=== PATIENT | female | born 1985 | race Caucasian/White ===

== ENCOUNTER 2016-08-15 11:21 | Emergency (ER) | payer OTHER ==
[2016-08-15 11:39] VITALS: BP 153/85; PULSE 88; RESP 16; TEMP 98.3
--- NOTE | 2016-08-15 12:00 | ED ---
General Adult HPI - General Chief complaint: Wound/Laceration Stated complaint: POST ABDOMINAL Sx PROBLEM Time Seen by Provider: 08/15/16 11:41 Source: patient, RN notes reviewed Mode of arrival: ambulatory Limitations: no limitations - History of Present Illness Initial comments: Patient 31-year-old female status post 11 days, who presents emergency room today with a chief complaint of some drainage coming from the incision site on the right. She states that she noticed small amount this morning. She states the Steri-Strips were wet. She states it is a clear color. She does admit some local pain and irritation. She denies any other complaints or symptoms. Patient denies any recent fever, chills, shortness of breath, chest pain, back pain, abdominal pain, nausea or vomiting, numbness or tingling, dysuria or hematuria, constipation or diarrhea, headaches or visual changes, or any other complaints. - Related Data Home Medications Medication Instructions Recorded Confirmed Pnv with Ca,No.72/Iron/FA 1 tab PO DAILY 03/01/16 08/04/16 [ Plus Tablet] Famotidine [Pepcid] 20 mg PO DAILY 07/28/16 08/04/16 Previous Rx's Medication Instructions Recorded Hydrocodone/Acetaminophen [[place] 1 - 2 tab PO Q6HR PRN #20 tab 08/06/16 5-325] Cephalexin [Keflex] 500 mg PO Q12HR 10 Days 08/15/16 Allergies Allergy/AdvReac Type Severity Reaction Status Date / Time hydromorphone [From Dilaudid] Allergy Itching Verified 08/15/16 11:38 citalopram hydrobromide AdvReac Rash/Hives Verified 08/15/16 11:38 [From Celexa] morphine AdvReac Itching Verified 08/15/16 11:38 Sulfa (Sulfonamide AdvReac Rash/Hives Verified 08/15/16 11:38 Antibiotics) Review of Systems ROS Statement: Those systems with pertinent positive or pertinent negative responses have been documented in the HPI. ROS Other: All systems not noted in ROS Statement are negative. Past Medical History Past Medical History: No Reported History History of Any Multi-Drug Resistant Organisms: None Reported Past Surgical History: Back Surgery, Section Past Anesthesia/Blood Transfusion Reactions: No Reported Reaction Past Psychological History: Depression Smoking Status: Never smoker Past Alcohol Use History: None Reported Past Drug Use History: None Reported - Past Family History Father Family Medical History: Cancer Additional Family Medical History / Comment(s): melanoma, pat. gpa-lymphoma General Exam - General Exam Comments Initial Comments: General: The patient is awake and alert, in no distress, and does not appear acutely ill. Eye: Pupils are equal, round and reactive to light, extra-ocular movements are intact. No nystagmus. There is normal conjunctiva bilaterally. No signs of icterus. Ears, nose, mouth and throat: There are moist mucous membranes and no oral lesions. Neck: The neck is supple, there is no tenderness or JVD. Cardiovascular: There is a regular rate and rhythm. No murmur, rub or gallop is appreciated. Respiratory: Lungs are clear to auscultation, respirations are non-labored, breath sounds are equal. No wheezes, stridor, rales, or rhonchi. Gastrointestinal: Soft, non-distended, non-tender abdomen without masses or organomegaly noted. There is no rebound or guarding present. No CVA tenderness. Bowel sounds are unremarkable. Musculoskeletal: Normal ROM, no tenderness. Strength 5/5. Sensation intact. Pulses equal bilaterally 2+. Neurological: A&O x 3. CN II-XII intact, There are no obvious motor or sensory deficits. Coordination appears grossly intact. Speech is normal. Skin: Surgical incision site does show small dehiscence on the right. No deep tissue involvement. Clear drainage. No local redness erythema. No signs of infection. Psychiatric: Cooperative, appropriate mood & affect, normal judgment. Limitations: no limitations Course Vital Signs 08/15/16 11:36 Temperature 98.3 F Pulse Rate 88 Respiratory 16 Rate Blood Pressure 153/85 O2 Sat by Pulse 97 Oximetry Medical Decision Making - Medical Decision Making Patient advised follow-up with her MARINE ENGINEER [facility] over the next 1-2 days. Patient be started on antibiotic Keflex cover for infection. Patient states she is not breast-feeding. Patient advised to return if any symptoms increase or worsen. Disposition Clinical Impression: Wound dehiscence, Disposition: HOME SELF-CARE Condition: Good Instructions: Acute Wound Care (ED) Additional Instructions: Please use antibiotic as prescribed. Please follow-up with the MARINE ENGINE[facility] over the next 1-2 days. Please return to emergency room if any symptoms increase or worsen or for any other concerns. Prescriptions: Cephalexin [Keflex] 500 mg PO Q12HR 10 Days Referrals: Shawn Hernández DO [Primary Care Provider] - 1-2 days Kristin Arteaga MD [STAFF PHYSICIAN] - 1-2 days Time of Disposition: 11:59
== END 2016-08-15 12:12 | disposition home or self-care (01) ==
LOC: EC 11:21
DX: O90.0 Disruption of cesarean delivery wound (principal); Z79.899 Other long term (current) drug therapy; Z88.5 Allergy status to narcotic agent; Z88.2 Allergy status to sulfonamides; Z88.8 Allergy status to other drugs, medicaments and biological substances
CPT/HCPCS: 87070; 87077; 87186; 87205; 99284

== ENCOUNTER 2016-09-15 04:11 | Observation (INO) | payer OTHER ==
[2016-09-15] MEDS ORDERED: SODIUM CHLORIDE 0.9% 500 ML IV STA (04:54)
[2016-09-15 05:11] LABS: Basophils % (A) 0 %; CH 30.1; CHCM 33.3; Eosinophils # (A) 0.2 k/uL (0-0.7); Eosinophils % (A) 3 %; HCT 41.8 % (34.0-46.0); HDW 2.26; Luc # (Auto) 0.14; Luc % (Auto) 2; Lymphocytes # (A) 2.5 k/uL (1.0-4.8); Lymphocytes % (A) 31 %; MCH 29.8 pg (25.0-35.0); MCV 90.4 fL (80.0-100.0); Mean Platelet Volume 6.6; Monocytes # (A) 0.4 k/uL (0-1.0); Monocytes % (A) 5 %; Neutrophils # (A) 4.7 k/uL (1.3-7.7); Neutrophils % (A) 59 %; RBC 4.62 m/uL (3.80-5.40); RDW 12.8 % (11.5-15.5); WBC (Perox) 8.36
[2016-09-15 05:15] LABS: Appearance,Urine Clear (Clear); Bilirubin,Urine Negative (Negative); Glucose,Urine (UA) Negative (Negative); Ketones,Urine Negative (Negative); Leukocyte Esterase,Urine Negative (Negative); Mucus,Urine Rare /hpf; Nitrite,Urine Negative (Negative); PH, Urine 5.5 (5.0-8.0); Particle Count 1870; Protein,Urine Negative (Negative); RBC,Urine 1 /hpf (0-5); Specific Gravity,Urine 1.008 (1.001-1.035); Squamous Epithelial Cell,Urine 7 /hpf (0-4); UA Billing (MACRO vs. MICRO) MICRO; Urobilinogen,Urine <2.0 mg/dL (<2.0); WBC,Urine 2 /hpf (0-5)
[2016-09-15 05:18] LABS: HGB 13.8 gm/dL (11.4-16.0)
[2016-09-15 05:23] LABS: ALT 75 U/L (9-52); AST 36 U/L (14-36); Alkaline Phosphatase 63 U/L (38-126); Amylase 32 U/L (30-110); Anion Gap 14 mmol/L; Blood Urea Nitrogen 16 mg/dL (7-17); C Reactive Protein 40.1 mg/L (<10.0); Calcium 9.4 mg/dL (8.4-10.2); Carbon Dioxide 23 mmol/L (22-30); Chloride 103 mmol/L (98-107); Glucose 93 mg/dL (74-99); Non-African American GFR(MDRD) >60 (>60 ml/min/1.73 sqM); Potassium 4.2 mmol/L (3.5-5.1); Sodium 140 mmol/L (137-145); Total Bilirubin 0.5 mg/dL (0.2-1.3); Total Protein 7.2 g/dL (6.3-8.2)
--- NOTE | 2016-09-15 06:54 | CT ---
EXAMINATION TYPE: CT abdomen pelvis wo con DATE OF EXAM: 09/15/2016 6:42 AM COMPARISON: NONE HISTORY: RLQ pain CT DLP: 892 mGycm Automated exposure control for dose reduction was used. TECHNIQUE: Helical acquisition of images was performed from the lung bases through the pelvis. FINDINGS: Lung bases are clear of infiltrate. There is no pleural effusion. There are paraspinal rods posterior ly stabilizing the thoracic and lumbar spine. Liver spleen pancreas and gallbladder appear normal. Bile ducts are not dilated. There is no adrenal mass. Kidneys are of normal size and contour. There is no hydronephrosis. There is a large ventral he rnia. There is thinning of the anterior abdominal wall. There are surgical clips in the pelvis apparently from tubal ligation. Bladder distends smoothly. The re is no ascites. There is no sign of a pelvic mass. There is mild fat stranding in the right lower q uadrant. There is a linear density in the right lower quadrant that appears to be within a loop of marley wel. This could be foreign body. This is seen best on axial image 91. I see no bowel obstruction. IMPRESSION: THERE ARE SOME INFLAMMATORY CHANGES IN THE SMALL BOWEL MESENTERY FAT IN THE RIGHT LOWER QUADRANT. THI S IS NONSPECIFIC AND COULD RELATE TO CROHN'S DISEASE OR FOREIGN BODY REACTION. POSSIBLE INTRALUMINAL FOREIGN BODY. THERE IS ADJACENT INTESTINAL WALL THICKENING THAT MEASURES UP TO 1 CM. THE APPENDIX IS PROBABLY VISUALIZED AND APPEARS NORMAL. NO BOWEL OBSTRUCTION SEEN.
[2016-09-15] MEDS ORDERED: ONDANSETRON 4 MG/2 ML VIAL IVP PRN (07:22)
[2016-09-15] MEDS ORDERED: NALOXONE 0.4 MG/ML 1 ML VIAL IV PRN (07:22)
--- NOTE | 2016-09-15 07:22 | ED ---
Abdominal Pain HPI - General Chief Complaint: Abdominal Pain Stated Complaint: ABD PAIN Time Seen by Provider: 09/15/16 04:23 Source: patient Mode of arrival: ambulatory Limitations: no limitations - History of Present Illness MD Complaint: abdominal pain -: hour(s) Location: periumbilical, RLQ Radiation: none Migration to: no migration Severity: moderate Severity scale (1-10): 6 Quality: aching Consistency: constant Improves With: nothing Worsens With: movement Associated Symptoms: nausea, diarrhea - Related Data Home Medications Medication Instructions Recorded Confirmed Pnv with Ca,No.72/Iron/FA 1 tab PO DAILY 03/01/16 08/04/16 [ Plus Tablet] Famotidine [Pepcid] 20 mg PO DAILY 07/28/16 08/04/16 Previous Rx's Medication Instructions Recorded Hydrocodone/Acetaminophen [[place] 1 - 2 tab PO Q6HR PRN #20 tab 08/06/16 5-325] Cephalexin [Keflex] 500 mg PO Q12HR 10 Days 08/15/16 Allergies Allergy/AdvReac Type Severity Reaction Status Date / Time citalopram hydrobromide AdvReac Rash/Hives Verified 09/15/16 04:21 [From Celexa] morphine AdvReac Itching Verified 09/15/16 04:21 Sulfa (Sulfonamide AdvReac Rash/Hives Verified 09/15/16 04:21 Antibiotics) Review of Systems ROS Statement: Those systems with pertinent positive or pertinent negative responses have been documented in the HPI. ROS Other: All systems not noted in ROS Statement are negative. Constitutional: Denies: fever, chills Respiratory: Denies: cough, dyspnea Cardiovascular: Denies: chest pain, palpitations Gastrointestinal: Reports: abdominal pain, nausea, vomiting. Denies: diarrhea, constipation, melena, hematochezia Genitourinary: Denies: urgency, dysuria, hematuria Musculoskeletal: Denies: back pain Skin: Denies: rash Neurological: Denies: headache, weakness, numbness Past Medical History Past Medical History: No Reported History History of Any Multi-Drug Resistant Organisms: None Reported Past Surgical History: Back Surgery, Section Past Anesthesia/Blood Transfusion Reactions: No Reported Reaction Past Psychological History: Anxiety, Depression Smoking Status: Never smoker Past Alcohol Use History: None Reported Past Drug Use History: None Reported - Past Family History Father Family Medical History: Cancer Additional Family Medical History / Comment(s): melanoma, pat. gpa-lymphoma General Exam Limitations: no limitations General appearance: alert, in no apparent distress Head exam: Present: atraumatic, normocephalic Eye exam: Present: normal appearance. Absent: scleral icterus, conjunctival injection ENT exam: Present: normal oropharynx Respiratory exam: Present: normal lung sounds bilaterally. Absent: respiratory distress, wheezes, rales, rhonchi, stridor Cardiovascular Exam: Present: regular rate, normal rhythm, normal heart sounds. Absent: systolic murmur, diastolic murmur, rubs, gallop GI/Abdominal exam: Present: soft, tenderness, guarding, normal bowel sounds. Absent: distended, rebound, rigid, mass, pulsatile mass, hernia Extremities exam: Present: normal inspection, normal capillary refill. Absent: pedal edema, calf tenderness Back exam: Present: normal inspection. Absent: CVA tenderness (R), CVA tenderness (L) Neurological exam: Present: alert Skin exam: Present: warm, dry, intact, normal color. Absent: rash, cyanosis, diaphoretic, erythema, petechiae, pallor, mottled Course Vital Signs 09/15/16 09/15/16 04:19 06:14 Temperature 98.6 F Pulse Rate 82 78 Respiratory 18 16 Rate Blood Pressure 106/72 106/73 O2 Sat by Pulse 99 97 Oximetry Medical Decision Making - Lab Data Result diagrams: 09/15/16 04:35 09/15/16 04:35 Lab Results 09/15/16 09/15/16 09/15/16 Range/Units 04:35 04:35 04:35 WBC 8.0 (3.8-10.6) k/uL RBC 4.62 (3.80-5.40) m/uL Hgb 13.8 D (11.4-16.0) gm/dL Hct 41.8 (34.0-46.0) % MCV 90.4 (80.0-100.0) fL MCH 29.8 (25.0-35.0) pg MCHC 33.0 (31.0-37.0) g/dL RDW 12.8 (11.5-15.5) % Plt Count 228 (150-450) k/uL Neutrophils % 59 % Lymphocytes % 31 % Monocytes % 5 % Eosinophils % 3 % Basophils % 0 % Neutrophils # 4.7 (1.3-7.7) k/uL Lymphocytes # 2.5 (1.0-4.8) k/uL Monocytes # 0.4 (0-1.0) k/uL Eosinophils # 0.2 (0-0.7) k/uL Basophils # 0.0 (0-0.2) k/uL Sodium 140 (137-145) mmol/L Potassium 4.2 (3.5-5.1) mmol/L Chloride 103 (98-107) mmol/L Carbon Dioxide 23 (22-30) mmol/L Anion Gap 14 mmol/L BUN 16 (7-17) mg/dL Creatinine 0.70 (0.52-1.04) mg/dL Est GFR (MDRD) Af Amer >60 (>60 ml/min/1.73 sqM) Est GFR (MDRD) Non-Af >60 (>60 ml/min/1.73 sqM) Glucose 93 (74-99) mg/dL Calcium 9.4 (8.4-10.2) mg/dL Total Bilirubin 0.5 (0.2-1.3) mg/dL AST 36 (14-36) U/L ALT 75 H (9-52) U/L Alkaline Phosphatase 63 (38-126) U/L C-Reactive Protein 40.1 H (<10.0) mg/L Total Protein 7.2 (6.3-8.2) g/dL Albumin 4.2 (3.5-5.0) g/dL Amylase 32 (30-110) U/L Lipase 64 (23-300) U/L Urine Color Light Yellow Urine Appearance Clear (Clear) Urine pH 5.5 (5.0-8.0) Ur Specific Nelson 1.008 (1.001-1.035) Urine Protein Negative (Negative) Urine Glucose (UA) Negative (Negative) Urine Ketones Negative (Negative) Urine Blood Small H (Negative) Urine Nitrate Negative (Negative) Urine Bilirubin Negative (Negative) Urine Urobilinogen <2.0 (<2.0) mg/dL Ur Leukocyte Esterase Negative (Negative) Urine RBC 1 (0-5) /hpf Urine WBC 2 (0-5) /hpf Ur Squamous Epith Cells 7 H (0-4) /hpf Urine Mucus Rare H (None) /hpf Disposition Clinical Impression: Colitis Disposition: ADMITTED IP TO THIS HOSP Condition: Fair
[2016-09-15] MEDS: SODIUM CHLORIDE 0.9% 1,000 ML IV SCH ×2 (08:43→18:44)
[2016-09-15] MEDS ORDERED: PANTOPRAZOLE 40 MG/10 ML VIAL IV SCH ×2 (09:00→21:00)
[2016-09-15] MEDS ORDERED: IBUPROFEN 600 MG TAB PO PRN (10:42)
[2016-09-15] MEDS ORDERED: IBUPROFEN 600 MG TAB PO SCH (10:45)
--- NOTE | 2016-09-15 12:02 | P.CONS ---
History of Present Illness - Reason for Consult Consult date: 09/15/16 colitis Requesting physician: Jose Rios - History of Present Illness 31-year-old female patient of Drs. Miranda and Eleazar past medical history of ovarian cysts, anxiety depression, 6 weeks presents with acute periumbilical abdominal pain that started on Tuesday. Pain is described as a soreness mostly around the periumbilical region extending mildly to the right lower quadrant. No diarrhea or constipation. Denies fever, chills, hematemesis , hematochezia, or melena. She made homemade cookie dough on Tuesday and ate some raw cookie dough equivalent to 2 cookies. No history of this type of pain. She did have quite a bit of nonbloody diarrhea during her but it subsided once she delivered her child. No history of colonoscopy. She has been afebrile. White count 8.0. Hemoglobin 13.8. CRP 40.1. No changes in medications. No recent travels. No history of personal familial inflammatory bowel diseases. Computed tomography scan abdomen and pelvis reported some inflammatory changes in the small bowel mesentery fat in the right lower quadrant nonspecific. Linear density in the right lower quadrant that appears to be within a loop of bowel possible foreign body possible foreign body reaction without obstruction. Review of Systems Constitutional: Denies fever, chills, sweats, weight gain, or loss. HEENT: Negative for migraines, blurred vision or loss, earaches, drainage, tinnitus, oral mucosal lesions, dysphagia, or odynophagia. CARDIAC: Negative for chest pain, arrhythmias, or palpitation. RESPIRATORY: Negative for shortness of breath, hemoptysis, cough, or sputum production. GI: See HPI for pertinent findings. : Negative for hematuria, urgency, frequency, polyuria, or dysuria. GYNc: Denies possibility of . Negative vaginal discharge. MUSCULOSKELETAL: Negative for muscle aches, swelling, arthritis, and arthralgias. NEUROLOGIC: Negative for stroke or TIA. ENDOCRINE: Negative for thyroid problems. SKIN: Negative for rash or itching. PSYCHIATRIC: depression and anxiety All systems: negative (See HPI) Past Medical History Past Medical History: No Reported History History of Any Multi-Drug Resistant Organisms: None Reported Past Surgical History: Back Surgery, Section, Tubal Ligation Additional Past Surgical History / Comment(s): Lumbar fusion with apolinar, last C- Section was 08/04/16 with tubal ligation. Past Anesthesia/Blood Transfusion Reactions: No Reported Reaction Past Psychological History: Anxiety, Depression Additional Psychological History / Comment(s): Pt resides with her spouse and her children, including a . Smoking Status: Never smoker Past Alcohol Use History: None Reported Past Drug Use History: None Reported - Past Family History Father Family Medical History: Cancer Additional Family Medical History / Comment(s): melanoma, pat. gpa-lymphoma Medications and Allergies Home Medications Medication Instructions Recorded Confirmed Type Cholecalciferol [Vitamin D3] 1,000 unit PO DAILY 09/15/16 09/15/16 History Multivitamins, Thera [Multivitamin] 1 tab PO DAILY 09/15/16 09/15/16 History Vitamin B Complex 1 cap PO DAILY 09/15/16 09/15/16 History traZODone HCL 50 mg PO HS 09/15/16 09/15/16 History Allergies Allergy/AdvReac Type Severity Reaction Status Date / Time citalopram hydrobromide AdvReac Rash/Hives Verified 09/15/16 11:36 [From Celexa] morphine AdvReac Itching Verified 09/15/16 11:36 Sulfa (Sulfonamide AdvReac Rash/Hives Verified 09/15/16 11:36 Antibiotics) Physical Exam Vitals: Vital Signs Temp Pulse Pulse Resp BP BP Pulse Ox 09/15/16 08:45 97.5 F L 65 18 110/67 96 09/15/16 08:42 97.9 F 65 18 102/65 95 General appearance: The patient is alert, oriented, in no acute distress. HET: Head is normocephalic and atraumatic. Pupils are equal and reactive. Oropharynx is clear without lesions. Neck: Supple without lymphadenopathy. Trachea midline. Heart: S1 S2. Regular rate and rhythm. Lungs: No crackles or wheezes are heard. Abdomen: Soft, periumbilical tenderness lower anterior transverse incision well approximate without erythema or drainage, nondistended with bowel sounds. No peritoneal signs. No palpable organomegaly or masses. Extremities: Normal skin color and turgor. No cyanosis, rash, ulceration, clubbing, or edema. Radial and pedal pulses are 2/4 bilaterally. Neurological: No focal deficits. Strength and sensation are grossly intact. Results CBC & Chem 7: 09/15/16 04:35 09/15/16 04:35 CT scan - abdomen: report reviewed (Review by Dr. Delvalle) Assessment and Plan (1) Abdominal pain Narrative/Plan: 31-year-old female who is 6 weeks presents with 3 day history of periumbilical abdominal pain without diarrhea fever or leukocytosis. Computed tomography scan suggestive of inflammatory changes within the mesentery in the right lower quadrant with underlying history of appendectomy. Doubt inflammatory bowel disease. Additional CT findings suggest linear density in the right lower quadrant within a loop of bowel possible foreign body possible foreign body reaction. Presentation could be a nonspecific localized enteritis. Status: Acute Plan: 1. Low residue diet. Stool studies if diarrhea should develop. 2. We'll defer to medical service for antibiotics. 3. Return to office in 1 week for reevaluation if abdominal pain not improved will discuss outpatient colonoscopy. 4. Will follow with you. Thank you for this kind referral and the opportunity to participate in the care of your patient. This consultation was discussed with Dr. Delvalle. The impression and plan of care have been directed as dictated.
[2016-09-15] MEDS ORDERED: POLYETHYLENE GLYCOL 3350 17 GM POWD.PACK PO PRN (15:48)
[2016-09-15] MEDS ORDERED: metroNIDAZOLE-NS PMX 500 MG in SALINE 1 100ML.BAG IVPB SCH (16:00)
[2016-09-15] MEDS: traMADol 50 MG TAB PO SCH ×2 (16:43→23:09)
--- NOTE | 2016-09-15 17:39 | P.HPIM ---
History of Present Illness H&P Date: 09/15/16 31 female who was in good health until about 4 days prior to admission comes in to the hospital complaining of epigastric to right abdominal pain. Patient denies having any food poisoning or do she complain of her other family members having any similar symptoms. Patient denies having any associated fevers, chills, diarrhea or any blood in her stools. Patient's pain has gotten progressively worse denies having any alleviating or excessive any factors. Location of the pain is epigastric to right lower quadrant. Patient denies having any similar complaints in the past. In the ER patient was noted to have an elevated CRP. Patient underwent a computed tomography scan of abdomen which was read to show nonspecific findings of enteritis and some concern for foreign object. Patient denies having any ingestion of foreign objects at this time. Patient is also 6 weeks status post . Patient does have intermittent spotting and is scheduled to see her vc++ developer within the next week. Review of Systems All systems: negative (Noted in HPI) Past Medical History Past Medical History: No Reported History History of Any Multi-Drug Resistant Organisms: None Reported Past Surgical History: Back Surgery, Section, Tubal Ligation Additional Past Surgical History / Comment(s): Lumbar fusion with apolinar, last C- Section was 08/04/16 with tubal ligation. Past Anesthesia/Blood Transfusion Reactions: No Reported Reaction Past Psychological History: Anxiety, Depression Additional Psychological History / Comment(s): Pt resides with her spouse and her children, including a . Smoking Status: Never smoker Past Alcohol Use History: None Reported Past Drug Use History: None Reported - Past Family History Father Family Medical History: Cancer Additional Family Medical History / Comment(s): melanoma, pat. gpa-lymphoma Medications and Allergies Home Medications Medication Instructions Recorded Confirmed Type Cholecalciferol [Vitamin D3] 1,000 unit PO DAILY 09/15/16 09/15/16 History Multivitamins, Thera [Multivitamin] 1 tab PO DAILY 09/15/16 09/15/16 History Vitamin B Complex 1 cap PO DAILY 09/15/16 09/15/16 History traZODone HCL 50 mg PO HS 09/15/16 09/15/16 History Allergies Allergy/AdvReac Type Severity Reaction Status Date / Time citalopram hydrobromide AdvReac Rash/Hives Verified 09/15/16 11:36 [From Celexa] morphine AdvReac Itching Verified 09/15/16 11:36 Sulfa (Sulfonamide AdvReac Rash/Hives Verified 09/15/16 11:36 Antibiotics) Physical Exam Vitals: Vital Signs Temp Pulse Pulse Resp BP BP Pulse Ox 09/15/16 16:05 97.7 F 45 L 19 90/49 98 09/15/16 12:39 97.9 F 65 18 102/63 95 09/15/16 08:45 97.5 F L 65 18 110/67 96 09/15/16 08:42 97.9 F 65 18 102/65 95 Intake and Output 09/15/16 09/15/16 09/15/16 06:59 14:59 22:59 Other: # Voids 2 Physical exam Gen. appearance oriented 3 in no distress Neck is supple no JVD Lungs good air entry clear to auscultation no rhonchi or wheezing Heart S1-S2 heard regular rate and rhythm no murmurs appreciated Abdomen focal tenderness in the epigastric to right lower quadrant region no rebound tenderness noted Neurologically cranial nerves II-12 grossly intact no focal motor or sensory deficits noted Skin no abnormalities appreciated Results CBC & Chem 7: 09/15/16 04:35 09/15/16 04:35 Thrombosis Risk Factor Assmnt - Choose All That Apply Any of the Below Risk Factors Present?: Yes Each Factor Represents 1 point: Obesity (BMI >25) Other Risk Factors: No Other congenital or acquired thrombophilia - If yes, enter type in comment: No Thrombosis Risk Factor Assessment Total Risk Factor Score: 1 Thrombosis Risk Factor Assessment Level: Low Risk Assessment and Plan Plan: Abdominal pain nonspecific likely could be secondary to enteritis. Elevated CRP is also nonspecific patient does not have any leukocytosis or signs of fever hence will not treat the patient with antibiotics at this time. Continue symptomatically treatment. #2 recent #3 vaginal bleeding #4 constipation Plan Bowel regimen. Pain control with ibuprofen and tramadol. Continue IV fluids. And symptomatically treatment with Zofran. This was discussed with the patient patient was also evaluated by the GI team and agreed with above as well.
[2016-09-15] MEDS: SENNOSIDES-DOCUSATE SODIUM 1 EACH TAB PO SCH (20:32)
[2016-09-16] MEDS: SODIUM CHLORIDE 0.9% 1,000 ML IV SCH (04:46)
[2016-09-16] MEDS ORDERED: PANTOPRAZOLE 40 MG TABLET PO SCH (07:30)
[2016-09-16] MEDS: SENNOSIDES-DOCUSATE SODIUM 1 EACH TAB PO SCH (08:41)
[2016-09-16] MEDS: traMADol 50 MG TAB PO SCH (08:48)
--- NOTE | 2016-09-16 10:11 | P.PN ---
Subjective Principal diagnosis: Abdominal pain 29-year-old female 6 weeks admitted with abdominal pain CT imaging suggestive of mesenteric fat stranding in the right lower quadrant possible enteritis possible colitis. No diarrhea. Tolerating diet. Pain is improved. Afebrile. Objective - Vital Signs Vital signs: Vital Signs Temp 97.7 F 09/16/16 07:37 Pulse 48 L 09/16/16 08:30 Resp 16 09/16/16 07:37 BP 127/76 09/16/16 07:37 Pulse Ox 97 09/16/16 07:37 Intake & Output 09/15/16 09/16/16 09/16/16 18:59 06:59 18:59 Intake Total 980 650 Balance 980 650 Intake: IV 980 Sodium Chloride 0.9% 1, 980 000 ml @ 100 mls/hr IV . Q10H GENEVA Rx#:[id number] Oral 650 Other: # Voids 1 1 1 - Exam General appearance: The patient is alert, oriented, in no acute distress. HET: Head is normocephalic and atraumatic. Pupils are equal and reactive. Oropharynx is clear without lesions. Neck: Supple without lymphadenopathy. Trachea midline. Heart: S1 S2. Regular rate and rhythm. Lungs: No crackles or wheezes are heard. Abdomen: Soft, nontender, nondistended with bowel sounds. Lower transverse incision without erythema or drainage. No peritoneal signs. No palpable organomegaly or masses. Extremities: Normal skin color and turgor. No cyanosis, rash, ulceration, clubbing, or edema. Radial and pedal pulses are 2/4 bilaterally. Neurological: No focal deficits. Strength and sensation are grossly intact. - Labs CBC & Chem 7: 09/15/16 04:35 09/15/16 04:35 Assessment and Plan (1) Abdominal pain Narrative/Plan: 31-year-old female who is 6 weeks presents with 3 day history of periumbilical abdominal pain without diarrhea fever or leukocytosis. Computed tomography scan suggestive of inflammatory changes within the mesentery in the right lower quadrant with underlying history of appendectomy. Doubt inflammatory bowel disease. Additional CT findings suggest linear density in the right lower quadrant within a loop of bowel possible foreign body possible foreign body reaction. Presentation could be a nonspecific localized enteritis. Status: Acute Plan: 1. Discharge per medicine. Diet as tolerated. Return to GI office in 1 week for reevaluation. Assessment and plan of care discussed with Dr. Delvalle
[2016-09-16 13:15] VITALS: BP 119/67; PULSE 53; RESP 24; TEMP 97.4
[2016-09-16 15:18] VITALS: BMI 25.6
--- NOTE | 2016-09-16 20:27 | P.DS ---
Providers Date of admission: 09/15/16 07:24 Attending physician: Fatmata Contreras Primary care physician: Shawn Hernández [facility] Course: 31 female who was in good health until about 4 days prior to admission comes in to the hospital complaining of epigastric to right abdominal pain. Patient denies having any food poisoning or do she complain of her other family members having any similar symptoms. Patient denies having any associated fevers, chills, diarrhea or any blood in her stools. Patient's pain has gotten progressively worse denies having any alleviating or excessive any factors. Location of the pain is epigastric to right lower quadrant. Patient denies having any similar complaints in the past. In the ER patient was noted to have an elevated CRP. Patient underwent a computed tomography scan of abdomen which was read to show nonspecific findings of enteritis and some concern for foreign object. Patient denies having any ingestion of foreign objects at this time. Patient is also 6 weeks status post . Patient does have intermittent spotting and is scheduled to see her toxicology supervisor within the next week. On the day of discharge patient stated to have tolerated diet. States that the abdominal pain is significant only improved. Physical Exam Vitals: Vital Signs Temp Pulse Pulse Resp BP BP Pulse Ox 09/15/16 16:05 97.7 F 45 L 19 90/49 98 09/15/16 12:39 97.9 F 65 18 102/63 95 09/15/16 08:45 97.5 F L 65 18 110/67 96 09/15/16 08:42 97.9 F 65 18 102/65 95 Intake and Output 09/15/16 09/15/16 09/15/16 06:59 14:59 22:59 Other: # Voids 2 Physical exam Gen. appearance oriented 3 in no distress Neck is supple no JVD Lungs good air entry clear to auscultation no rhonchi or wheezing Heart S1-S2 heard regular rate and rhythm no murmurs appreciated Abdomen focal tenderness in the epigastric to right lower quadrant region no rebound tenderness noted Neurologically cranial nerves II-12 grossly intact no focal motor or sensory deficits noted Skin no abnormalities appreciated Plan: Abdominal pain nonspecific likely could be secondary to enteritis. Nonspecific. However improved symptomatically treatment. Continue ibuprofen for pain control. Is to follow-up with GI on an outpatient basis. If patient's symptoms can 2 new to recur with the elevated CRP patient may need a colonoscopy thereafter a biopsy for pending inflammatory bowel disease. #2 recent #3 vaginal bleeding #4 constipation #5 history of scoliosis status post [place] apolinar placement. Patient was treated symptomatically is discharged home in stable condition is to follow-up with GI and her toxicology supervisor. Patient Condition at Discharge: Fair Plan - Discharge Summary Discharge Medication List Cholecalciferol [Vitamin D3] 1,000 unit PO DAILY 09/15/16 [History] Multivitamins, Thera [Multivitamin] 1 tab PO DAILY 09/15/16 [History] Vitamin B Complex 1 cap PO DAILY 09/15/16 [History] traZODone HCL 50 mg PO HS 09/15/16 [History] Ibuprofen [Motrin] 600 mg PO TID PRN #0 tab 09/16/16 [Rx] Follow up Appointment(s)/Referral(s): Billy Delvalle MD [STAFF PHYSICIAN] - 09/23/16 4:00 pm Shawn Hernández DO [Primary Care Provider] - 1 Week Activity/Diet/Wound Care/Special Instructions: Follow up with OBGYN as soon as able. regular diet . continue to drink and to move around at home. increase fiber in diet. call Primary Dr's office with any concerns. Discharge Disposition: HOME SELF-CARE
== END 2016-09-16 15:47 | disposition home or self-care (01) ==
LOC: EC 04:11 → 6PED 07:24
PROVIDERS: ADMIT Hospitalist; ATTEND Hospitalist
DX: O90.89 Other complications of the puerperium, not elsewhere classified (principal); R10.31 Right lower quadrant pain; R10.13 Epigastric pain; R10.33 Periumbilical pain; R79.82 Elevated C-reactive protein (CRP); F32.9 Major depressive disorder, single episode, unspecified; Z68.25 Body mass index [BMI] 25.0-25.9, adult; O72.1 Other immediate postpartum hemorrhage; E66.9 Obesity, unspecified; K59.00 Constipation, unspecified; Z88.8 Allergy status to other drugs, medicaments and biological substances; Z88.5 Allergy status to narcotic agent; Z88.2 Allergy status to sulfonamides; Z79.899 Other long term (current) drug therapy; F41.9 Anxiety disorder, unspecified; Z90.49 Acquired absence of other specified parts of digestive tract; M41.9 Scoliosis, unspecified; Z98.1 Arthrodesis status
CPT/HCPCS: 96361; 99285; 36415; 80053; 82150; 83690; 85025; 86140; 81001; 74176; G0378 ×2; J2405; J0696; C9113; 96365; 96375

== ENCOUNTER 2016-10-11 09:17 | Day surgery (SDC) | payer OTHER ==
[2016-10-06 11:55] VITALS: BMI 24.1
[~2016-10-11 09:17] MED LIST: LACTATED RINGERS 1,000 ML IV SCH; LIDOCAINE 1% 20 ML VIAL (10MG/ML) FOR IV START INTRADERMA PRN
[2016-10-11 09:37] VITALS: TEMP 98.2
[2016-10-11] MEDS ORDERED: PROPOFOL 10 MG/ML 20 ML VIAL IV ONE (10:25)
--- NOTE | 2016-10-11 11:00 | P.PCN ---
Date of Procedure: 10/11/16 Procedure(s) Performed: Procedure: Colonoscopy and biopsy. Preoperative diagnosis: Abdominal pain. Postoperative diagnosis: Normal colon and terminal ileum. Preparation: HalfLytely prep. Sedation: Was provided by anesthesia. Brief clinical history: The patient is a 31-year-old female who I have evaluated in the office last month regarding abdominal pain and nausea of recent onset. The patient is several weeks and had diarrhea in the second half of her but not since delivery. A CT of the abdomen done in the emergency room raised the possibility of inflammatory bowel disease and there was a question of foreign body in the appendix. Her CRP was elevated at 40.1. I scheduled this evaluation to assess for inflammatory bowel disease or other pathology. Procedure: With the patient on her left lateral decubitus position and after informed consent and adequate sedation, the perianal area was inspected and it did not show any fissures or fistulas. There were no masses felt on digital rectal examination. The Olympus CFQ 160L video colonoscope was then inserted in the rectum in the usual fashion and advanced to the cecum. I intubated the ileocecal valve and examined the terminal ileum. Terminal ileum and colon appeared healthy with no edema, erythema, friability, ulceration, exudation or spontaneous bleeding. No polyps or tumors were seen no other pathology. I obtained biopsies from the terminal ileum and right colon. I retroflexed endoscope in the rectum before the endoscope was withdrawn. The patient tolerated the procedure well. Plan: The patient was reassured. Will await biopsy results and make further recommendations based on her course and biopsy results. I will keep you updated on her progress.
[2016-10-11 11:46] VITALS: BP 117/80; PULSE 43; RESP 18
== END 2016-10-11 12:02 | disposition home or self-care (01) ==
LOC: ORWHC2ENDO 09:17
DX: R10.9 Unspecified abdominal pain (principal); R93.5 Abnormal findings on diagnostic imaging of other abdominal regions, including retroperitoneum; K57.30 Diverticulosis of large intestine without perforation or abscess without bleeding; Z87.19 Personal history of other diseases of the digestive system; Z79.899 Other long term (current) drug therapy; Z88.2 Allergy status to sulfonamides; Z88.8 Allergy status to other drugs, medicaments and biological substances
CPT/HCPCS: 81025; 88305; 45380; J2704

== ENCOUNTER 2019-12-26 10:43 | Inpatient (IN) | payer BC ==
[2019-12-26] MEDS ORDERED: THIAMINE 100 MG/ML 2 ML VIAL IM STA (11:19)
[2019-12-26] MEDS ORDERED: ONDANSETRON 4 MG/2 ML VIAL IVP STA ×2 (11:22→13:23)
[2019-12-26] MEDS ORDERED: MAGNESIUM SULFATE-D5W PMX 1 GM in DEXTROSE/WATER 1 100ML.BAG IVPB STA (11:22)
[2019-12-26] MEDS ORDERED: SODIUM CHLORIDE 0.9% 1,000 ML IV STA (11:22)
[2019-12-26] MEDS: LORazepam 2 MG/ML INJ IV PRN ×7 (11:29→21:24)
--- NOTE | 2019-12-26 11:29 | ED ---
General Adult HPI - General Chief complaint: Psychiatric Symptoms Stated complaint: withdrawal Time Seen by Provider: 12/26/19 10:54 Source: patient, family Mode of arrival: ambulatory Limitations: no limitations - History of Present Illness Initial comments: Patient is a 34-year-old female with history of alcohol abuse, depression and anxiety presenting to the emergency department with a chief complaint for alcohol withdrawal. Patient states she was cleaning for about 6 years, however she relapsed back about 7 months ago. Patient states she is a daily drinker of a fifth of [place] Sow. Patient reports she has begun losing track of time and thought currently it is only 10 AM so her brought her to the ED for evaluation. Patient reports she drank last night. Patient states she would like to have psychiatric evaluation. Denies any homicidal thoughts or ideations. States she is on multiple psychiatric medications. States she is currently on psychiatric leave of absence from work. - Related Data Home Medications Medication Instructions Recorded Confirmed Gabapentin [Neurontin] 300 mg PO BID 12/26/19 12/26/19 Lurasidone [Latuda] 40 mg PO HS 12/26/19 12/26/19 Vilazodone HCl [Viibryd] 20 mg PO HS 12/26/19 12/26/19 hydrOXYzine PAMOATE [Vistaril] 25 mg PO TID PRN 12/26/19 12/26/19 lamoTRIgine 100 mg PO HS 12/26/19 12/26/19 traZODone HCL [Desyrel] 100 mg PO HS 12/26/19 12/26/19 Allergies Allergy/AdvReac Type Severity Reaction Status Date / Time citalopram hydrobromide AdvReac Rash/Hives Verified 12/26/19 13:02 [From Celexa] morphine AdvReac Itching Verified 12/26/19 13:02 Sulfa (Sulfonamide AdvReac Rash/Hives Verified 12/26/19 13:02 Antibiotics) Review of Systems ROS Statement: Those systems with pertinent positive or pertinent negative responses have been documented in the HPI. ROS Other: All systems not noted in ROS Statement are negative. Past Medical History Past Medical History: No Reported History Additional Past Medical History / Comment(s): ABDOMINAL PAIN History of Any Multi-Drug Resistant Organisms: None Reported Past Surgical History: Back Surgery, Section, Tubal Ligation Additional Past Surgical History / Comment(s): Lumbar fusion with apolinar, last C- Section was 08/04/16 with tubal ligation. Past Anesthesia/Blood Transfusion Reactions: No Reported Reaction Past Psychological History: Anxiety, Depression Smoking Status: Never smoker Past Alcohol Use History: Heavy Past Drug Use History: None Reported - Past Family History Father Family Medical History: Cancer Additional Family Medical History / Comment(s): melanoma, pat. gpa-lymphoma General Exam Limitations: no limitations General appearance: alert, in no apparent distress, appears intoxicated, anxious, obese, other (Generalized body tremors) Head exam: Present: atraumatic, normocephalic, normal inspection Eye exam: Present: normal appearance, PERRL, EOMI Pupils: Present: normal accommodation ENT exam: Present: normal exam, normal oropharynx, mucous membranes dry Neck exam: Present: normal inspection, full ROM Respiratory exam: Present: normal lung sounds bilaterally. Absent: respiratory distress, wheezes Cardiovascular Exam: Present: regular rate, normal rhythm, normal heart sounds Extremities exam: Present: normal inspection, full ROM Back exam: Present: normal inspection, full ROM Neurological exam: Present: alert, oriented X3 Psychiatric exam: Present: normal affect, anxious Skin exam: Present: warm, dry, intact, normal color Course Vital Signs 12/26/19 12/26/19 10:45 13:52 Temperature 97.8 F Pulse Rate 91 129 H Respiratory 20 20 Rate Blood Pressure 139/98 142/90 O2 Sat by Pulse 100 97 Oximetry Medical Decision Making - Medical Decision Making Patient is 34-year-old female with history of alcohol abuse, depression and anxiety presenting to emergency Department with chief complaint of alcohol intoxication. CBC unremarkable. Patient has elevated transaminases which I suspect is secondary to the chronic alcohol intake. Patient has a blood alcohol level of 331. On initial evaluation patient with tremulous, anxious and crying throughout the whole examination. CIWA assessed. Patient started on Ativan accordingly. Banana bag started. Patient will be admitted for further medical management with a psych consult. Return parameters were thoroughly discussed with patient was understanding and agreeable. is also in the room and he is agreeable. Case discussed with . Admitting physician is Dr. sanchez - Lab Data Result diagrams: 12/26/19 11:08 12/26/19 11:08 Lab Results 12/26/19 12/26/19 12/26/19 Range/Units 11:08 11:08 11:08 WBC 6.1 (3.8-10.6) k/uL RBC 4.71 (3.80-5.40) m/uL Hgb 15.0 (11.4-16.0) gm/dL Hct 46.2 H (34.0-46.0) % MCV 98.0 (80.0-100.0) fL MCH 31.9 (25.0-35.0) pg MCHC 32.5 (31.0-37.0) g/dL RDW 14.0 (11.5-15.5) % Plt Count 290 (150-450) k/uL Neutrophils % 38 % Lymphocytes % 51 % Monocytes % 8 % Eosinophils % 0 % Basophils % 1 % Neutrophils # 2.3 (1.3-7.7) k/uL Lymphocytes # 3.1 (1.0-4.8) k/uL Monocytes # 0.5 (0-1.0) k/uL Eosinophils # 0.0 (0-0.7) k/uL Basophils # 0.1 (0-0.2) k/uL Sodium 141 (137-145) mmol/L Potassium 3.7 (3.5-5.1) mmol/L Chloride 100 (98-107) mmol/L Carbon Dioxide 21 L (22-30) mmol/L Anion Gap 20 mmol/L BUN 9 (7-17) mg/dL Creatinine 0.88 (0.52-1.04) mg/dL Est GFR (CKD-EPI)AfAm >90 (>60 ml/min/1.73 sqM) Est GFR (CKD-EPI)NonAf 85 (>60 ml/min/1.73 sqM) Glucose 152 H (74-99) mg/dL Calcium 9.3 (8.4-10.2) mg/dL Total Bilirubin 1.1 (0.2-1.3) mg/dL AST 159 H (14-36) U/L ALT 94 H (4-34) U/L Alkaline Phosphatase 90 (38-126) U/L Total Protein 9.2 H (6.3-8.2) g/dL Albumin 5.3 H (3.5-5.0) g/dL Serum Alcohol 331 H* mg/dL Disposition Clinical Impression: Acute anxiety, Alcohol intoxication Disposition: HOME SELF-CARE Condition: Stable Instructions (If sedation given, give patient instructions): Alcohol Intoxication (ED) Additional Instructions: Patient will be admitted Is patient prescribed a controlled substance at d/c from ED?: No Referrals: Manuela Bill MD [Primary Care Provider] - 1-2 days Time of Disposition: 14:37
[2019-12-26 12:12] LABS: Basophils # (A) 0.1 k/uL (0-0.2); Basophils % (A) 1 %; Eosinophils % (A) 0 %; HCT 46.2 % (34.0-46.0); Lymphocytes # (A) 3.1 k/uL (1.0-4.8); Lymphocytes % (A) 51 %; MCH 31.9 pg (25.0-35.0); MCHC 32.5 g/dL (31.0-37.0); Mean Platelet Volume 6.8; Monocytes # (A) 0.5 k/uL (0-1.0); Monocytes % (A) 8 %; Neutrophils # (A) 2.3 k/uL (1.3-7.7); Neutrophils % (A) 38 %; Platelet Count 290 k/uL (150-450); RBC 4.71 m/uL (3.80-5.40); WBC 6.1 k/uL (3.8-10.6)
[2019-12-26 12:21] LABS: ALT 94 U/L (4-34); AST 159 U/L (14-36); African American GFR (CKD) >90 (>60 ml/min/1.73 sqM); Albumin 5.3 g/dL (3.5-5.0); Alkaline Phosphatase 90 U/L (38-126); Anion Gap 20 mmol/L; Blood Urea Nitrogen 9 mg/dL (7-17); Calcium 9.3 mg/dL (8.4-10.2); Carbon Dioxide 21 mmol/L (22-30); Chloride 100 mmol/L (98-107); Glucose 152 mg/dL (74-99); Non-African American GFR(CKD) 85 (>60 ml/min/1.73 sqM); Potassium 3.7 mmol/L (3.5-5.1); Sodium 141 mmol/L (137-145); Total Bilirubin 1.1 mg/dL (0.2-1.3); Total Protein 9.2 g/dL (6.3-8.2)
[2019-12-26] MEDS ORDERED: SODIUM CHLORIDE 0.9% 1,000 ML with MVI, ADULT NO.4 WITH VIT K 10 ML, THIAMINE 100 MG, F... IV ONE ×4 (12:30)
[2019-12-26] MEDS ORDERED: ONDANSETRON 4 MG/2 ML VIAL IVP PRN (14:30)
[2019-12-26] MEDS ORDERED: NALOXONE 0.4 MG/ML 1 ML VIAL IV PRN (14:30)
[2019-12-26] MEDS ORDERED: SODIUM CHLORIDE 0.9% 1,000 ML IV SCH (14:30)
[2019-12-26] MEDS ORDERED: CALCIUM CARBONATE 500 MG CHEWABLE PO PRN (20:07)
[2019-12-26] MEDS ORDERED: LACTULOSE 20 GM/30 ML CUP PO PRN (20:07)
[2019-12-26] MEDS ORDERED: MAG HYDROX/AL HYDROX/SIMETH 30 ML CUP PO PRN (20:07)
[2019-12-26] MEDS ORDERED: NA PHOS,M-B/NA PHOS,DI-BA 133 ML ENEMA RECTAL PRN (20:07)
[2019-12-26] MEDS ORDERED: MAGNESIUM HYDROXIDE 2,400 MG/10 ML CUP PO PRN (20:07)
[2019-12-26] MEDS: GABAPENTIN 300 MG CAP PO SCH (20:38)
[2019-12-26] MEDS: THIAMINE 100 MG TAB PO SCH (20:38)
[2019-12-26] MEDS: traZODone HCL 100 MG TAB PO SCH (20:38)
[2019-12-26] MEDS: lamoTRIgine 100 MG TAB PO SCH (20:39)
[2019-12-26] MEDS: VILAZODONE HCL 20 MG PO SCH (20:41)
[2019-12-26] MEDS: LURASIDONE 40 MG TAB PO SCH (21:23)
--- NOTE | 2019-12-26 22:14 | P.HPIM ---
History of Present Illness H&P Date: 12/26/19 Chief Complaint: Nausea vomiting History of presenting complaint: This is a pleasant 34-year-old patient of Dr. Marisa Bill. Patient had been drinking alcohol for quite some time and was clean for 6 years. About 7 months ago she and her started going through divorce. And she relapsed. And has not been drinking excessive alcohol for several months. She still lives with her . Has a history of anxiety depression. Does follow the below water counseling with the mid-level practitioner. Patient been drinking at least a fifth of The [place]ose daily. For 3 days. Not able to keep anything down having nausea vomiting. Denies any fever and chills. No respiratory symptoms. Occasional bowel movement. Tired rundown. She does want to stop alcohol. Somewhat shaky and jittery. 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 Currently not working for last 2 months. Does not smoke cigars. Does drink 10 Juanjose about a fifth the day has relapsed for last 7 months Physical examination: VITAL SIGNS: 97.8, 129, 20, 142/90, 97% on room air GENERAL: BMI 30.2, laying in bed, restless and slightly disheveled. EYES: Pupils equal. Conjunctiva normal. HEENT: External appearance of nose and ears normal, oral cavity grossly normal. NECK: JVD not raised; masses not palpable. HEART: First and second heart sounds are normal; no edema. LUNGS: Respiratory rate normal; clear to auscultation. ABDOMEN: Soft, nontender, liver spleen not palpable, no masses palpable. PSYCH: Alert and oriented x3; mood and affect anxiousl. NEUROLOGICAL: Cranial nerves grossly intact; no facial asymmetry, power and sensation grossly intact tremors of present. LYMPHATICS: No lymph nodes palpable in the axilla and neck INVESTIGATIONS, reviewed in the clinical context: White count 6.1 hemoglobin 15 platelets 290 potassium 3.7 bun 9 creatinine 0.88 AST 159 ALT 94 Serum alcohol 331 Assessment: -Acute alcohol intoxication, POA -Alcohol use disorder -Alcoholic hepatitis -Alcohol withdrawal syndrome, POA -Obesity BMI 30.2 -Depression and anxiety not otherwise specified -Suspect underlying alcoholic gastritis esophagitis Plan: We'll start the patient on fall precautions. Also CIWA scale with sliding scale Ativan. For alcohol withdrawal syndrome. The patient is scheduled Valium 5 mg every 8 keep a close eye on the respiration. To cut back on sympathetic drive will use Lopressor 12.5 mg by mouth every 8. Also start the patient on liquid Tums, IV Protonix. Psychiatry is being consulted. Care was discussed with the patient patient question were answered.. Expect the patient to be hospital for at least 2 overnights Past Medical History Past Medical History: No Reported History Additional Past Medical History / Comment(s): ABDOMINAL PAIN History of Any Multi-Drug Resistant Organisms: None Reported Past Surgical History: Back Surgery, Section, Tubal Ligation Additional Past Surgical History / Comment(s): Lumbar fusion with apolinar, last C- Section was 08/04/16 with tubal ligation. Past Anesthesia/Blood Transfusion Reactions: No Reported Reaction Past Psychological History: Anxiety, Depression Smoking Status: Never smoker Past Alcohol Use History: Heavy Past Drug Use History: None Reported - Past Family History Father Family Medical History: Cancer Additional Family Medical History / Comment(s): melanoma, pat. gpa-lymphoma Medications and Allergies Home Medications Medication Instructions Recorded Confirmed Type Gabapentin [Neurontin] 300 mg PO BID 12/26/19 12/26/19 History Lurasidone [Latuda] 40 mg PO HS 12/26/19 12/26/19 History Vilazodone HCl [Viibryd] 20 mg PO HS 12/26/19 12/26/19 History hydrOXYzine PAMOATE [Vistaril] 25 mg PO TID PRN 12/26/19 12/26/19 History lamoTRIgine 100 mg PO HS 12/26/19 12/26/19 History traZODone HCL [Desyrel] 100 mg PO HS 12/26/19 12/26/19 History Allergies Allergy/AdvReac Type Severity Reaction Status Date / Time citalopram hydrobromide AdvReac Rash/Hives Verified 12/26/19 13:02 [From Celexa] morphine AdvReac Itching Verified 12/26/19 13:02 Sulfa (Sulfonamide AdvReac Rash/Hives Verified 12/26/19 13:02 Antibiotics) Physical Exam Vitals: Vital Signs Temp Pulse Resp BP Pulse Ox 12/26/19 18:16 110 H 18 118/83 97 12/26/19 16:34 116 H 18 133/87 96 12/26/19 15:16 125 H 18 136/101 97 12/26/19 13:52 129 H 20 142/90 97 12/26/19 10:45 97.8 F 91 20 139/98 100 Intake and Output 12/26/19 12/26/19 12/26/19 06:59 14:59 22:59 Other: Weight 72.575 kg Results CBC & Chem 7: 12/26/19 11:08 12/26/19 11:08 Labs: Abnormal Lab Results - Last 24 Hours (Table) 12/26/19 12/26/19 12/26/19 Range/Units 11:08 11:08 11:08 Hct 46.2 H (34.0-46.0) % Carbon Dioxide 21 L (22-30) mmol/L Glucose 152 H (74-99) mg/dL AST 159 H (14-36) U/L ALT 94 H (4-34) U/L Total Protein 9.2 H (6.3-8.2) g/dL Albumin 5.3 H (3.5-5.0) g/dL Serum Alcohol 331 H* mg/dL
[2019-12-26] MEDS: METOPROLOL TARTRATE 12.5 MG TAB PO SCH (22:26)
[2019-12-26] MEDS: ENOXAPARIN 40 MG/0.4 ML SYRINGE SQ SCH (22:26)
[2019-12-26] MEDS: DIAZEPAM 5 MG TAB PO SCH (22:26)
[2019-12-26] MEDS: PANTOPRAZOLE 40 MG/10 ML VIAL IVP SCH (22:26)
[2019-12-26] MEDS: LACTATED RINGERS 1,000 ML IV SCH (22:27)
[2019-12-27] MEDS: LORazepam 2 MG/ML INJ IV PRN ×4 (00:57→23:39)
[2019-12-27] MEDS: LACTATED RINGERS 1,000 ML IV SCH ×3 (05:46→15:53)
[2019-12-27] MEDS: DIAZEPAM 5 MG TAB PO SCH ×3 (06:45→20:14)
[2019-12-27] MEDS: CALCIUM CARBONATE LIQUID 500 MG/5 ML CUP PO SCH ×4 (06:46→20:14)
[2019-12-27] MEDS: THIAMINE 100 MG TAB PO SCH ×2 (06:50→17:45)
[2019-12-27] MEDS: ENOXAPARIN 40 MG/0.4 ML SYRINGE SQ SCH (08:41)
[2019-12-27] MEDS: METOPROLOL TARTRATE 12.5 MG TAB PO SCH ×3 (08:41→20:15)
[2019-12-27] MEDS: GABAPENTIN 300 MG CAP PO SCH ×2 (08:41→20:15)
[2019-12-27] MEDS: PANTOPRAZOLE 40 MG/10 ML VIAL IVP SCH (08:42)
--- NOTE | 2019-12-27 16:39 | P.PN ---
Progress Note - Text Progress Note Date: 12/27/19 Chief Complaint: Nausea vomiting History of presenting complaint: This is a pleasant 34-year-old patient of Dr. Marisa Bill. Patient had been drinking alcohol for quite some time and was clean for 6 years. About 7 months ago she and her started going through divorce. And she relapsed. And has not been drinking excessive alcohol for several months. She still lives with her . Has a history of anxiety depression. Does follow the below water counseling with the mid-level practitioner. Patient been drinking at least a fifth of The [place] daily. For 3 days. Not able to keep anything down having nausea vomiting. Denies any fever and chills. No respiratory symptoms. Occasional bowel movement. Tired rundown. She does want to stop alcohol. Somewhat shaky and jittery. Admitted with-acute alcohol intoxication, alcoholic hepatitis, alcohol w ithdrawal syndrome. Started on Valium, Lopressor IV fluids. Also alcoholic gastritis esophagitis suspected. Today-patient tolerating full liquids. Nausea better. Tremors improved. Does feel better compared to last night. Tired. Did walk to the bathroom. Review of systems: Was done for constitutional, cardiovascular, GI, pulmonary. relevant finding as above Active Medications Al Hydroxide/Mg Hydroxide (Maalox) 15 ml PO Q6HR PRN PRN Reason: Indigestion Calcium Carbonate/Glycine (Tums) 1,000 mg PO Q4HR PRN PRN Reason: Dyspepsia Calcium Carbonate/Glycine (Tums Liquid) 500 mg PO ACHS [facility] Last Admin: 12/27/19 12:45 Dose: 500 mg Documented by: Diazepam (Valium) 2.5 mg PO Q8H [facility] Enoxaparin Sodium (Lovenox) 40 mg SQ DAILY [facility] Last Admin: 12/27/19 08:41 Dose: 40 mg Documented by: Gabapentin (Neurontin) 300 mg PO BID [facility] [place] Last Admin: 12/27/19 08:41 Dose: 300 mg Documented by: Lactated Ringer's (Lactated Ringers) 1,000 mls @ 100 mls/hr IV .Q10H [facility] [place] Last Admin: 12/27/19 15:53 Dose: Not Given Documented by: Lactulose (Cephulac) 20 gm PO DAILY PRN PRN Reason: Constipation Lamotrigine (Lamictal) 100 mg PO HS [facility] [place] Last Admin: 12/26/19 20:39 Dose: 100 mg Documented by: Lorazepam (Ativan) 1 mg IV Q2HR PRN PRN Reason: CIWA 8 or 9 Last Admin: 12/27/19 00:57 Dose: 1 mg Documented by: Lorazepam (Ativan) 1 mg IV Q1HR PRN PRN Reason: CIWA 10 to 15 Last Admin: 12/26/19 21:24 Dose: 1 mg Documented by: Lurasidone HCl (Latuda) 40 mg PO [facility] Last Admin: 12/26/19 21:23 Dose: 40 mg Documented by: Magnesium Hydroxide (Milk Of Magnesia) 2,400 mg PO DAILY PRN PRN Reason: Constipation Metoprolol Tartrate (Lopressor) 12.5 mg PO TID [facility] Last Admin: 12/27/19 15:54 Dose: 12.5 mg Documented by: Naloxone HCl (Narcan) 0.2 mg IV Q2M PRN PRN Reason: Opioid Reversal Non-Formulary Medication (Vilazodone Hcl [Viibryd]) 20 mg PO [facility] Last Admin: 12/26/19 20:41 Dose: Not Given Documented by: Ondansetron HCl (Zofran) 4 mg IVP Q8HR PRN PRN Reason: Nausea And Vomiting Last Admin: 12/26/19 20:39 Dose: 4 mg Documented by: Pantoprazole Sodium (Protonix) 40 mg PO DAILY [facility] Sodium Biphosphate/Sodium Phosphate (Fleet Adult) 133 ml RECTAL ONCE PRN PRN Reason: Constipation Thiamine HCl (Vitamin B-1) 100 mg PO BID-W/MEALS [facility] Last Admin: 12/27/19 06:50 Dose: 100 mg Documented by: Trazodone HCl (Desyrel) 100 mg PO [facility] Last Admin: 12/26/19 20:38 Dose: 100 mg Documented by: Physical examination: VITAL SIGNS: 98.9, 98, 20, 144/96, 97% on room mesh GENERAL: Sitting on bed, appears more calm today. EYES: Pupils equal. Conjunctiva normal. HEENT: External appearance of nose and ears normal, oral cavity grossly normal. NECK: JVD not raised; masses not palpable. HEART: First and second heart sounds are normal; no edema. LUNGS: Respiratory rate normal; clear to auscultation. ABDOMEN: Soft, nontender, liver spleen not palpable, no masses palpable. PSYCH: Alert and oriented x3; mood and affect depressed and anxious NEUROLOGICAL: Minimal tremors INVESTIGATIONS, reviewed in the clinical context: White count 6.1 hemoglobin 15 platelets 290 potassium 3.7 bun 9 creatinine 0.88 AST 159 ALT 94 Serum alcohol 331 COVID-19 PCF-not detected Assessment: -Acute alcohol intoxication, POA -Alcohol use disorder -Alcoholic hepatitis -Alcohol withdrawal syndrome, POA is truly POA-improving -Obesity BMI 30.2 -Depression and anxiety not otherwise specified -Suspect underlying alcoholic gastritis esophagitis Plan: Discussed with the patient. We will increase her diet to soft plan I'll later tonight or tomorrow morning depending how she does with food. Encouraged to be out of bed. Cut back the dose of Valium to 2.5 mg every 8 hours. Discussed with the patient. Reassured.. Psychiatry being consulted. Cut back IV fluids 200 mL an hour. Keep current dose of Lopressor.
[2019-12-27] MEDS: LURASIDONE 40 MG TAB PO SCH (20:15)
[2019-12-27] MEDS: lamoTRIgine 100 MG TAB PO SCH (20:15)
[2019-12-27] MEDS: traZODone HCL 100 MG TAB PO SCH (20:15)
[2019-12-27] MEDS: VILAZODONE HCL 20 MG PO SCH (20:15)
[2019-12-27 21:13] VITALS: RESP 18
[2019-12-28] MEDS: DIAZEPAM 5 MG TAB PO SCH ×2 (06:30→13:57)
[2019-12-28] MEDS: THIAMINE 100 MG TAB PO SCH (06:30)
[2019-12-28] MEDS: LACTATED RINGERS 1,000 ML IV SCH ×2 (06:30→11:17)
[2019-12-28] MEDS: CALCIUM CARBONATE LIQUID 500 MG/5 ML CUP PO SCH ×2 (06:31→11:56)
[2019-12-28] MEDS: METOPROLOL TARTRATE 12.5 MG TAB PO SCH (08:56)
[2019-12-28] MEDS: ENOXAPARIN 40 MG/0.4 ML SYRINGE SQ SCH (08:56)
[2019-12-28] MEDS: GABAPENTIN 300 MG CAP PO SCH (08:56)
[2019-12-28] MEDS ORDERED: PANTOPRAZOLE 40 MG TABLET PO SCH (09:00)
[2019-12-28 11:22] VITALS: BP 149/102; PULSE 68; TEMP 98.6
[2019-12-28] MEDS ORDERED: hydrOXYzine PAMOATE 25 MG CAP PO PRN (13:44)
--- NOTE | 2019-12-28 13:44 | P.CN ---
Psychiatric Consult - . 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 HISTORY OF PRESENT ILLNESS: The patient presented to the hospital on 12/26/2019 for complaints of alcohol withdrawal. Patient stated that she was sober for 6 years and relapsed 7 months ago. She claims that she has been drinking [employer]. Juanjose mario every day and states that she last drank prior to coming to the hospital. She states that her also drinks at home. Patient admitted to having tremors and anxiety and also was feeling nauseous and vomiting. Patient's LFTs were elevated and blood alcohol level was 331. Patient was brought into the ER for evaluation by her . Patient also endorsed feeling "confused about the time" when she first came into the hospital and spoke about problems with her leading up to her relapse. She states that her tremulousness is improving and claims that she is tolerating more food today. She endorses improvement in her mood however admits to chronic depression and anxiety and also relays a diagnosis of PTSD. He states that she has been taking her medications and has been following up with her nurse practitioner who has been prescribing her psychiatric medications however has not been telling her about her drinking and relapsed. She states that she does have some cravings for alcohol in the past. She denied any history of DTs or seizures in the past from withdrawal. She did claim that she has a history of 2 DUIs in the past and 2006 and 2012. She claims that she slept better last night and admits to "the medication working when I'm not drinking". At this time patient denies any suicidal or homical ideations, intent or plan. Patient denies any auditory, visual hallucinations and denies any paranoia or delusions. Patients admits to using alcohol daily, drinking [employer]. Juanjose maroi every day. She denies any other recreational drug use. She endorsed wanting to live for her children and her future and job. PAST PSYCHIATRIC HISTORY: Patient has a a history of depression and PTSD. She states that she is on Lamictal 100 mg at night, but 2-40 mg at night, trazodone 100 mg daily at bedtime, vilazodone 20 mg at night and has been taking Vistaril 25 mg every 8 hours when necessary for anxiety. She has been following up with a nurse practitioner who prescribed her psychiatric medications and also claims that she does have a therapist at [facility] counseling Patient denies any previous psychiatric hospitalizations. PAST MEDICAL HISTORY: Alcoholic hepatitis. ALLERGIES: as per EMR. CHEMICAL DEPENDENCY HISTORY: as per HPI. FAMILY PSYCHIATRIC/SUBSTANCE USE HISTORY: States that her mother abused alcohol and cocaine, states that her father has anxiety. SOCIAL HISTORY: Patient was born and raised in [facility] and completed her bachelor's degree in nursing. 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 She admitted to 2 DUIs in the past, 2006 and 2012. MENTAL STATUS EXAM: General Appearance: Patient appears to be stated age is alert, pleasant, and attempts to be cooperative. Patient appears to have fair hygiene and grooming wearing hospital gown with fair eye contact. Behavior: Patient is calmly lying in bed without any agitated behavior. Times to be cooperative. Speech: Patient's speech is fluent and nonpressured. Mood/Affect: Patient reports their mood is "better today", affect is congruent Suicidality/Homicidality: Patient denies having any suicidal or homicidal ideation intent or plan. Perceptions: Patient denies any visual hallucinations and denies any auditory hallucinations Though content/process: There is no evidence of any delusional thought content and thought process is linear and goal-directed. Future oriented. Memory and concentration: AOX3, grossly intact for the purposes of this session. Can spell "WORLD" backwards Judgment and insight: Fair IMPRESSIONS: Depressive disorder unspecified, rule out secondary to alcohol use disorder History of PTSD Alcohol use disorder, moderate-severe, currently in withdrawal. PLAN: -At this time patient DOES NOT meet criteria for inpatient psychiatric admission. -Would recommend the following medication changes/additions: Patient would like to remain on the same dose of her medications at this time is easier current home medications. Bowstring Maker spoke with patient about the options for anti-craving medications for her alcohol use however at this time patient is not eligible for starting naltrexone due to her elevated liver enzymes. Patient was encouraged to speak with her psychiatric nurse practitioner about starting naltrexone after her LFTs normalize. Will restart Vistaril 25 mg every 8 hours when necessary for anxiety. -Continue with CIWA protocol with when necessary Ativan and also Valium taper for alcohol withdrawal. -Patient apparently has a follow-up appointment with her psychiatric nurse practitioner on 01/03 and [facility] Was encouraged to go to this appointment for follow-up. -Patient was willing to call access intake for substance abuse rehab, social economist to help patient with this and give further resources for outpatient substance abuse programs/treatment options as well. -Psychiatry will sign off at this point, please contact with any questions. 12/28/19 13:32
--- NOTE | 2019-12-28 17:33 | P.DS ---
Providers Date of admission: 12/27/19 11:03 Expected date of discharge: 12/28/19 Attending physician: Luis Enrique Feng Consults: 12/27/19 16:38 Consult Physician Routine Consulting Provider: Donnell Chong Consult Reason/Comments: Significant depression Do you want consulting provider notified?: Yes Primary care physician: Manuela Bill [facility] Course: Chief Complaint: Nausea vomiting History of presenting complaint: This is a pleasant 34-year-old patient of Dr. Marisa Bill. Patient had been drinking alcohol for quite some time and was clean for 6 years. About 7 months ago she and her started going through divorce. And she relapsed. And has not been drinking excessive alcohol for several months. She still lives with her . Has a history of anxiety depression. Does follow the [facility] counseling with the mid-level practitioner. Patient been drinking at least a fifth of [employer]ose daily. For 3 days. Not able to keep anything down having nausea vomiting. Denies any fever and chills. No respiratory symptoms. Occasional bowel movement. Tired rundown. She does want to stop alcohol. Somewhat shaky and jittery. Admitted with-acute alcohol intoxication, alcoholic hepatitis, alcohol withdrawal syndrome. Started on Valium, Lopressor IV fluids. Also alcoholic gastritis esophagitis suspected. Today-patient doing much better today. Witnessed the patient to walk in the room. Doing well. Overall stabilized. Discharge planning were discussed. Cleared by psychiatry. Patient asked to look into places like [place]. Consultation: Dr. Low from psychiatry Physical examination: VITAL SIGNS: 98.6, 68, 18, 135/95, 96% room air GENERAL: Sitting on bed, more relaxed EYES: Pupils equal. Conjunctiva normal. HEENT: External appearance of nose and ears normal, oral cavity grossly normal. NECK: JVD not raised; masses not palpable. HEART: First and second heart sounds are normal; no edema. LUNGS: Respiratory rate normal; clear to auscultation. ABDOMEN: Soft, nontender, liver spleen not palpable, no masses palpable. PSYCH: Alert and oriented x3; mood and affect-more relaxed NEUROLOGICAL: No tremors INVESTIGATIONS, reviewed in the clinical context: White count 6.1 hemoglobin 15 platelets 290 potassium 3.7 bun 9 creatinine 0.88 AST 159 ALT 94 Serum alcohol 331 COVID-19 PCF-not detected Assessment: -Acute alcohol intoxication, POA -Alcohol use disorder -Alcoholic hepatitis -Alcohol withdrawal syndrome, POA i -Obesity BMI 30.2 -Depression and anxiety not otherwise specified -Suspect underlying alcoholic gastritis esophagitis Disposition: Home with family Patient Condition at Discharge: Stable Plan - Discharge Summary New Discharge Prescriptions: New Metoprolol Tartrate [Lopressor] 12.5 mg PO TID #6 tab Omeprazole [PriLOSEC] 20 mg PO AC-BID #60 cap Diazepam [Valium] 2 mg PO DIRECTED #7 tab Thiamine [Vitamin B-1] 100 mg PO BID-W/MEALS #30 tab Continue traZODone HCL [Desyrel] 100 mg PO HS lamoTRIgine 100 mg PO HS Lurasidone [Latuda] 40 mg PO HS hydrOXYzine PAMOATE [Vistaril] 25 mg PO TID PRN PRN Reason: Anxiety Gabapentin [Neurontin] 300 mg PO BID Vilazodone HCl [Viibryd] 20 mg PO HS Discharge Medication List Gabapentin [Neurontin] 300 mg PO BID 12/26/19 [History] Lurasidone [Latuda] 40 mg PO HS 12/26/19 [History] Vilazodone HCl [Viibryd] 20 mg PO HS 12/26/19 [History] hydrOXYzine PAMOATE [Vistaril] 25 mg PO TID PRN 12/26/19 [History] lamoTRIgine 100 mg PO HS 12/26/19 [History] traZODone HCL [Desyrel] 100 mg PO HS 12/26/19 [History] Diazepam [Valium] 2 mg PO DIRECTED #7 tab 12/28/19 [Rx] Metoprolol Tartrate [Lopressor] 12.5 mg PO TID #6 tab 12/28/19 [Rx] Omeprazole [PriLOSEC] 20 mg PO AC-BID #60 cap 12/28/19 [Rx] Thiamine [Vitamin B-1] 100 mg PO BID-W/MEALS #30 tab 12/28/19 [Rx] Follow up Appointment(s)/Referral(s): Manuela Bill MD [Primary Care Provider] - 1-2 days Patient Instructions/Handouts: Alcohol Intoxication (ED) Activity/Diet/Wound Care/Special Instructions: no driving for next 4 days Pt will be following with her own [facility] psychiatrist on 01/04/20. She prefers to make her own appointment with Dr. Bill Discharge Disposition: HOME SELF-CARE
== END 2019-12-28 15:41 | disposition home or self-care (01) | DRG 897 ==
LOC: EC 10:43 → 4SSUR 14:14 → 3SCARD 15:46 → OBSVTOIN 12-27 11:03
PROVIDERS: ADMIT Hospitalist; ATTEND Hospitalist
DX: F10.239 Alcohol dependence with withdrawal, unspecified (principal); F10.229 Alcohol dependence with intoxication, unspecified; F32.9 Major depressive disorder, single episode, unspecified; F41.9 Anxiety disorder, unspecified; Y90.8 Blood alcohol level of 240 mg/100 ml or more; K29.20 Alcoholic gastritis without bleeding; K70.10 Alcoholic hepatitis without ascites; E66.9 Obesity, unspecified; K20.9 Esophagitis, unspecified; Z11.59 Encounter for screening for other viral diseases; Z79.899 Other long term (current) drug therapy; Z88.5 Allergy status to narcotic agent; Z88.2 Allergy status to sulfonamides; Z88.8 Allergy status to other drugs, medicaments and biological substances; Z98.890 Other specified postprocedural states; Z98.51 Tubal ligation status; Z80.7 Family history of other malignant neoplasms of lymphoid, hematopoietic and related tissues; Z80.8 Family history of malignant neoplasm of other organs or systems; Z68.30 Body mass index [BMI] 30.0-30.9, adult
CPT/HCPCS: 36415; 80053; 80320; 85025; 87635

== ENCOUNTER 2021-03-27 18:14 | Emergency (ER) | payer BC ==
[2021-03-27 19:13] VITALS: BP 145/78; PULSE 118; RESP 22; TEMP 98.2
[2021-03-27] MEDS ORDERED: LORazepam 1 MG TAB PO STA (20:58)
[2021-03-27] MEDS ORDERED: SODIUM CHLORIDE 0.9% 1,000 ML IV STA (20:58)
[2021-03-27] MEDS ORDERED: ONDANSETRON 4 MG/2 ML VIAL IVP STA (20:59)
[2021-03-27 21:44] LABS: Basophils # (A) 0.1 k/uL (0-0.2); Basophils % (A) 1 %; Eosinophils % (A) 1 %; HGB 13.9 gm/dL (11.4-16.0); Lymphocytes # (A) 2.8 k/uL (1.0-4.8); Lymphocytes % (A) 55 %; MCH 34.5 pg (25.0-35.0); MCHC 33.9 g/dL (31.0-37.0); MCV 101.7 fL (80.0-100.0); Macrocytosis Slight; Mean Platelet Volume 6.9; Monocytes # (A) 0.3 k/uL (0-1.0); Monocytes % (A) 5 %; Neutrophils # (A) 1.8 k/uL (1.3-7.7); Neutrophils % (A) 36 %; Platelet Count 378 k/uL (150-450); RBC 4.03 m/uL (3.80-5.40); RDW 14.6 % (11.5-15.5)
[2021-03-27 21:57] LABS: ALT 74 U/L (4-34); AST 70 U/L (14-36); African American GFR (CKD) >90 (>60 ml/min/1.73 sqM); Albumin 5.1 g/dL (3.5-5.0); Alkaline Phosphatase 75 U/L (38-126); Amylase 65 U/L (30-110); Anion Gap 17 mmol/L; Blood Urea Nitrogen 11 mg/dL (7-17); Calcium 9.1 mg/dL (8.4-10.2); Carbon Dioxide 22 mmol/L (22-30); Chloride 105 mmol/L (98-107); Glucose 127 mg/dL (74-99); Non-African American GFR(CKD) >90 (>60 ml/min/1.73 sqM); Potassium 3.9 mmol/L (3.5-5.1); Sodium 144 mmol/L (137-145); Total Bilirubin 0.4 mg/dL (0.2-1.3); Total Protein 8.2 g/dL (6.3-8.2)
[2021-03-27 21:58] LABS: Appearance,Urine Clear (Clear); Bilirubin,Urine Negative (Negative); Blood,Urine Small (Negative); Color,Urine Yellow; Glucose,Urine (UA) Negative (Negative); Ketones,Urine 1+ (Negative); Leukocyte Esterase,Urine Negative (Negative); Mucus,Urine Few /hpf; Nitrite,Urine Negative (Negative); Protein,Urine 2+ (Negative); RBC,Urine 4 /hpf (0-5); Squamous Epithelial Cell,Urine 3 /hpf (0-4); Urobilinogen,Urine <2.0 mg/dL (<2.0); WBC,Urine 8 /hpf (0-5)
[2021-03-27 22:03] LABS: Lipase 140 U/L (23-300)
[2021-03-27 22:04] LABS: Alcohol 260 mg/dL
[2021-03-27 22:09] LABS: Amphetamine Screen,Urine Not Detected (NotDetected); Barbiturate Screen,Urine Not Detected (NotDetected); Benzodiazepines Screen,Urine Not Detected (NotDetected); Cocaine Screen,Urine Not Detected (NotDetected); Methadone Screen, Urine Not Detected (NotDetected); Opiate Screen,Urine Not Detected (NotDetected); Oxycodone Screen, Urine Not Detected (NotDetected); Phencyclidine Screen,Urine Not Detected (NotDetected); Tricyclic Antidepressant,Urine Not Detected (NotDetected); Urn Cannabinoid Scrn Not Detected (NotDetected)
--- NOTE | 2021-03-28 00:26 | ED ---
Anxiety HPI - General Chief Complaint: Anxiety Stated Complaint: alcohol withdrawal Time Seen by Provider: 03/27/21 19:39 Source: patient, RN notes reviewed Mode of arrival: ambulatory - History of Present Illness Initial Comments: Patient is a 35-year-old female that presents to the emergency Department complaining of alcohol withdrawal. She notes her last drink was approximately 5 PM on 03/27/2021. She notes that she drank approximately a fifth of alcohol. She denied having a history of any withdrawal symptoms such as seizures or tremors. She was otherwise a well-appearing 35-year-old female. She denied any chest pain shortness of breath headache vomiting diarrhea constipation fever fatigue chills. - Related Data Home Medications: Home Medications Medication Instructions Recorded Confirmed Gabapentin [Neurontin] 300 mg PO BID 12/26/19 12/26/19 Lurasidone [Latuda] 40 mg PO HS 12/26/19 12/26/19 Vilazodone HCl [Viibryd] 20 mg PO HS 12/26/19 12/26/19 hydrOXYzine pamoate [Vistaril] 25 mg PO TID PRN 12/26/19 12/26/19 lamoTRIgine 100 mg PO HS 12/26/19 12/26/19 traZODone HCL [Desyrel] 100 mg PO HS 12/26/19 12/26/19 Previous Rx's Medication Instructions Recorded Metoprolol Tartrate [Lopressor] 12.5 mg PO TID #6 tab 12/28/19 Omeprazole [PriLOSEC] 20 mg PO AC-BID #60 cap 12/28/19 Thiamine [Vitamin B-1] 100 mg PO BID-W/MEALS #30 tab 12/28/19 diazePAM [Valium] 2 mg PO DIRECTED #7 tab 12/28/19 Allergies/Adverse Reactions: Allergies Allergy/AdvReac Type Severity Reaction Status Date / Time citalopram hydrobromide AdvReac Rash/Hives Verified 03/27/21 19:13 [From Celexa] morphine AdvReac Itching Verified 03/27/21 19:13 Sulfa (Sulfonamide AdvReac Rash/Hives Verified 03/27/21 19:13 Antibiotics) Review of Systems ROS Statement: Those systems with pertinent positive or pertinent negative responses have been documented in the HPI. ROS Other: All systems not noted in ROS Statement are negative. Past Medical History Past Medical History: Hypertension Additional Past Medical History / Comment(s): ABDOMINAL PAIN History of Any Multi-Drug Resistant Organisms: None Reported Past Surgical History: Appendectomy, Back Surgery, Section, Tonsillectomy, Tubal Ligation Additional Past Surgical History / Comment(s): Lumbar fusion with apolinar, last C- Section was 08/04/16 with tubal ligation. Past Anesthesia/Blood Transfusion Reactions: No Reported Reaction Past Psychological History: Anxiety, Depression Smoking Status: Never smoker Past Alcohol Use History: Abuse, Daily, Heavy Past Drug Use History: None Reported - Past Family History Father Family Medical History: Cancer Additional Family Medical History / Comment(s): melanoma, pat. gpa-lymphoma General Exam Limitations: no limitations General appearance: alert, in no apparent distress Head exam: Present: atraumatic, normocephalic, normal inspection Neck exam: Present: normal inspection. Absent: tenderness, meningismus, lymphadenopathy Respiratory exam: Present: normal lung sounds bilaterally. Absent: respiratory distress, wheezes, rales, rhonchi, stridor Cardiovascular Exam: Present: regular rate, normal rhythm, normal heart sounds. Absent: systolic murmur, diastolic murmur, rubs, gallop, clicks GI/Abdominal exam: Present: soft, normal bowel sounds. Absent: distended, tenderness, guarding, rebound, rigid Extremities exam: Present: normal inspection, full ROM, normal capillary refill. Absent: tenderness, pedal edema, joint swelling, calf tenderness Neurological exam: Present: alert, oriented X3 Psychiatric exam: Present: normal affect, normal mood Skin exam: Present: warm, dry, intact, normal color. Absent: rash Course Vital Signs 03/27/21 19:07 Temperature 98.2 F Pulse Rate 118 H Respiratory 22 Rate Blood Pressure 145/78 O2 Sat by Pulse 99 Oximetry Medical Decision Making - Medical Decision Making 35-year-old female who is intoxicated on alcohol stating that she thinks she has anxiety and or withdrawal symptoms. Labs, 1 mg Ativan, 4 g of Zofran, 1 L normal saline ordered. Labs: Alcohol serum 260, rest labs unremarkable. Case discussed with Dr. Chatterjee, patient can discharge which he becomes sober which is approximately 9 hours after arrival. - Lab Data Result diagrams: 03/27/21 21:35 03/27/21 21:35 Lab Results 03/27/21 03/27/21 03/27/21 Range/Units 21:35 21:35 21:35 WBC 5.0 (3.8-10.6) k/uL RBC 4.03 (3.80-5.40) m/uL Hgb 13.9 (11.4-16.0) gm/dL Hct 41.0 (34.0-46.0) % MCV 101.7 H (80.0-100.0) fL MCH 34.5 (25.0-35.0) pg MCHC 33.9 (31.0-37.0) g/dL RDW 14.6 (11.5-15.5) % Plt Count 378 (150-450) k/uL MPV 6.9 Neutrophils % 36 % Lymphocytes % 55 % Monocytes % 5 % Eosinophils % 1 % Basophils % 1 % Neutrophils # 1.8 (1.3-7.7) k/uL Lymphocytes # 2.8 (1.0-4.8) k/uL Monocytes # 0.3 (0-1.0) k/uL Eosinophils # 0.0 (0-0.7) k/uL Basophils # 0.1 (0-0.2) k/uL Macrocytosis Slight Sodium 144 (137-145) mmol/L Potassium 3.9 (3.5-5.1) mmol/L Chloride 105 (98-107) mmol/L Carbon Dioxide 22 (22-30) mmol/L Anion Gap 17 mmol/L BUN 11 (7-17) mg/dL Creatinine 0.65 (0.52-1.04) mg/dL Est GFR (CKD-EPI)AfAm >90 (>60 ml/min/1.73 sqM) Est GFR (CKD-EPI)NonAf >90 (>60 ml/min/1.73 sqM) Glucose 127 H (74-99) mg/dL Calcium 9.1 (8.4-10.2) mg/dL Magnesium 2.0 (1.6-2.3) mg/dL Total Bilirubin 0.4 (0.2-1.3) mg/dL AST 70 H (14-36) U/L ALT 74 H (4-34) U/L Alkaline Phosphatase 75 (38-126) U/L Total Protein 8.2 (6.3-8.2) g/dL Albumin 5.1 H (3.5-5.0) g/dL Amylase 65 (30-110) U/L Lipase 140 (23-300) U/L Urine Color Yellow Urine Appearance Clear (Clear) Urine pH 6.0 (5.0-8.0) Ur Specific [place] 1.030 (1.001-1.035) Urine Protein 2+ H (Negative) Urine Glucose (UA) Negative (Negative) Urine Ketones 1+ H (Negative) Urine Blood Small H (Negative) Urine Nitrite Negative (Negative) Urine Bilirubin Negative (Negative) Urine Urobilinogen <2.0 (<2.0) mg/dL Ur Leukocyte Esterase Negative (Negative) Urine RBC 4 (0-5) /hpf Urine WBC 8 H (0-5) /hpf Ur Squamous Epith Cells 3 (0-4) /hpf Urine Mucus Few H (None) /hpf Urine Opiates Screen Not Detected (NotDetected) Ur Oxycodone Screen Not Detected (NotDetected) Urine Methadone Screen Not Detected (NotDetected) Ur Propoxyphene Screen Not Detected (NotDetected) Ur Barbiturates Screen Not Detected (NotDetected) U Tricyclic Antidepress Not Detected (NotDetected) Ur Phencyclidine Scrn Not Detected (NotDetected) Ur Amphetamines Screen Not Detected (NotDetected) U Methamphetamines Scrn Not Detected (NotDetected) U Benzodiazepines Scrn Not Detected (NotDetected) Urine Cocaine Screen Not Detected (NotDetected) U Marijuana (THC) Screen Not Detected (NotDetected) Serum Alcohol 260 H* mg/dL Disposition Clinical Impression: Alcohol intoxication, Acute anxiety Disposition: HOME SELF-CARE Condition: Stable Instructions (If sedation given, give patient instructions): Generalized Anxiety Disorder (ED) Additional Instructions: Please return to the Emergency Department if symptoms worsen or any other concerns. Follow-up with primary care in 1-2 days. Seek help if needed. Is patient prescribed a controlled substance at d/c from ED?: No Referrals: Manuela Bill MD [Primary Care Provider] - 1-2 days Time of Disposition: 00:26
== END 2021-03-28 02:00 | disposition left against medical advice (07) ==
LOC: EC 18:14
DX: F10.129 Alcohol abuse with intoxication, unspecified (principal); F41.9 Anxiety disorder, unspecified; I10 Essential (primary) hypertension; Z88.2 Allergy status to sulfonamides; Z88.5 Allergy status to narcotic agent; Z88.8 Allergy status to other drugs, medicaments and biological substances; Y90.8 Blood alcohol level of 240 mg/100 ml or more; Z79.899 Other long term (current) drug therapy
CPT/HCPCS: 36415; 80053; 82150; 83690; 83735; 85025; 81001; 81025; 80306; 80320; 99284; 96374; 96361; J2405